=== PATIENT | male | born 1955 | race Two or more races ===

== ENCOUNTER 2023-02-16 22:03 | Emergency (ER) | payer OTHER ==
[~2023-02-16] VITALS: Ht 188 cm; Wt 106.5 kg
[2023-02-16 22:27] LABS: Basophils # (auto) 0 10 ^3/uL (0-0.2); Basophils % (auto) 0.5 % (0.0-2.0); Eosinophils # (auto) 0.3 10 ^3/uL (0-0.8); Hematocrit 42.2 % (41.0-53.0); Hemoglobin 14.8 g/dL (13.5-17.5); Lymphocytes # (auto) 2.8 10 ^3/uL (0.4-5.4); Lymphocytes % (auto) 30.4 % (10.0-50.0); Mean Corpuscular Hemoglobin 30.6 pg (28.0-32.0); Mean Corpuscular Hgb Conc. 35.1 g/dL (32.0-36.0); Monocytes # (auto) 0.9 10 ^3/uL (0-1.3); Monocytes % (auto) 9.7 % (0.0-12.0); Neutrophils # (auto) 5.3 10 ^3/uL (1.6-8.6); Neutrophils % (auto) 56.4 % (37.0-80.0); Nucleated Red Blood Cells % 0.2 %; Red Blood Cells 4.85 10^6/uL (4.5-5.90); Red Cell Distribution Width 13.3 % (11.8-14.3); White Blood Cell 9.4 10^3/uL (4.4-10.8)
[2023-02-16 22:40] LABS: Albumin 3.8 g/dL (3.4-5.0); Calcium 8.8 mg/dL (8.5-10.1)
[2023-02-16 22:44] LABS: Bilirubin, Total 0.3 mg/dL (0.2-1.0); Total Protein 7.6 g/dL (6.4-8.2)
[2023-02-16 22:47] LABS: Urine Bacteria NONE SEEN /hpf (None Seen); Urine Blood Negative /uL (Negative); Urine Specific Gravity 1.024 (1.001-1.035); Urine WBC <1 /hpf (0 - 3)
[2023-02-16 23:19] LABS: BUN/Creatinine Ratio 25.8 (10.0-20.0)
[2023-02-17] MEDS ORDERED: ASPirin 325 MG TAB PO ONE (02:45)
[2023-02-17 04:51] VITALS: BP 135/82
[2023-02-17] MEDS ORDERED: LISI20TA28 PO ×2 (05:25)
[2023-02-17] MEDS ORDERED: LISINOPRIL 10 MG TAB PO ONE (05:30)
[2023-02-17] MEDS ORDERED: LISI-716 PO (05:32)
[2023-02-18] MEDS ORDERED: METO25TA93 PO (23:34)
[2023-02-18] MEDS ORDERED: CLOP75TA28 PO (23:34)
== END 2023-02-17 07:16 | disposition home or self-care (01) ==
LOC: ER 22:03
DX: R07.89 Other chest pain (principal); R77.8 Other specified abnormalities of plasma proteins; E86.0 Dehydration; E87.8 Other disorders of electrolyte and fluid balance, not elsewhere classified; R79.89 Other specified abnormal findings of blood chemistry; E78.5 Hyperlipidemia, unspecified; I10 Essential (primary) hypertension
CPT/HCPCS: 36415; 71045; 80053; 81001; 84484; 85025; 93005

== ENCOUNTER 2023-02-17 09:40 | Inpatient (IN) | payer OTHER ==
[~2023-02-17] VITALS: Ht 188 cm; Wt 104.2 kg
[~2023-02-17 09:40] MED LIST: LISI-716 PO; LISI20TA28 PO
[2023-02-17 10:24] LABS: Basophils # (auto) 0 10 ^3/uL (0-0.2); Basophils % (auto) 0.4 % (0.0-2.0); Eosinophils # (auto) 0.2 10 ^3/uL (0-0.8); Eosinophils % (auto) 2.4 % (0.0-7.0); Hematocrit 43.2 % (41.0-53.0); Lymphocytes # (auto) 2.5 10 ^3/uL (0.4-5.4); Lymphocytes % (auto) 25.3 % (10.0-50.0); Mean Corpuscular Hemoglobin 30.3 pg (28.0-32.0); Mean Corpuscular Hgb Conc. 34.7 g/dL (32.0-36.0); Mean Corpuscular Volume 87.1 fL (80.0-100.0); Monocytes # (auto) 0.7 10 ^3/uL (0-1.3); Monocytes % (auto) 7.5 % (0.0-12.0); Neutrophils # (auto) 6.2 10 ^3/uL (1.6-8.6); Neutrophils % (auto) 64.4 % (37.0-80.0); Nucleated Red Blood Cells % 0.2 %; Red Blood Cells 4.96 10^6/uL (4.5-5.90); Red Cell Distribution Width 13.3 % (11.8-14.3); White Blood Cell 9.7 10^3/uL (4.4-10.8)
[2023-02-17] MEDS ORDERED: SOD CHL 0.45% 1,000 ML IV ONE (10:45)
[2023-02-17] MEDS ORDERED: MORPHINE SULFATE INJ 2 MG/ml SYRG IV PRN (10:45)
[2023-02-17] MEDS ORDERED: NITROGLYCERIN 0.4 MG SL TAB SL PRN (10:45)
[2023-02-17 10:46] LABS: Potassium 4.8 mmol/L (3.5-5.1)
[2023-02-17 10:53] LABS: Albumin 4.1 g/dL (3.4-5.0); BUN/Creatinine Ratio 25.6 (10.0-20.0); Bilirubin, Total 0.5 mg/dL (0.2-1.0); Calcium 9.2 mg/dL (8.5-10.1); Total Protein 7.4 g/dL (6.4-8.2)
[2023-02-17] MEDS ORDERED: NITROGLYCERIN 0.4 MG SL TAB SL ONE (11:00)
[2023-02-17 11:23] LABS: INR 1.01 (0.9-1.15)
[2023-02-17] MEDS ORDERED: ONDANSETRON HCL 4 MG/2 ML VIAL ONE (16:12)
[2023-02-17] MEDS ORDERED: ONDANSETRON HCL 4 MG/2 ML VIAL IV ONE (16:15)
[2023-02-18 06:03] LABS: Albumin 3.4 g/dL (3.4-5.0); Calcium 8.9 mg/dL (8.5-10.1); Potassium 4.2 mmol/L (3.5-5.1)
[2023-02-18 06:06] LABS: Bilirubin, Total 0.5 mg/dL (0.2-1.0)
[2023-02-18 06:21] LABS: Basophils # (auto) 0 10 ^3/uL (0-0.2); Basophils % (auto) 0.5 % (0.0-2.0); Eosinophils # (auto) 0.2 10 ^3/uL (0-0.8); Eosinophils % (auto) 2.1 % (0.0-7.0); Hematocrit 40.7 % (41.0-53.0); Hemoglobin 14.3 g/dL (13.5-17.5); Lymphocytes # (auto) 1.7 10 ^3/uL (0.4-5.4); Lymphocytes % (auto) 20.3 % (10.0-50.0); Mean Corpuscular Hgb Conc. 35.1 g/dL (32.0-36.0); Mean Corpuscular Volume 88.3 fL (80.0-100.0); Monocytes # (auto) 0.7 10 ^3/uL (0-1.3); Monocytes % (auto) 8.7 % (0.0-12.0); Neutrophils # (auto) 5.9 10 ^3/uL (1.6-8.6); Neutrophils % (auto) 68.4 % (37.0-80.0); Nucleated Red Blood Cells % 0.1 %; Red Blood Cells 4.61 10^6/uL (4.5-5.90); Red Cell Distribution Width 13.5 % (11.8-14.3); White Blood Cell 8.6 10^3/uL (4.4-10.8)
[2023-02-18] MEDS ORDERED: ENOXAPARIN SOD 40 MG/0.4 ML SYRINGE SC SCH (10:00)
[2023-02-18] MEDS ORDERED: METOPROLOL SUCCINATE XL 50 MG TAB PO SCH (10:00)
[2023-02-18] MEDS: CLOPIDOGREL BISULFATE 75 MG TAB PO SCH (10:14)
[2023-02-18] MEDS: LISINOPRIL 10 MG TAB PO SCH (10:14)
[2023-02-18 11:00] LABS: Urine Bacteria NONE SEEN /hpf (None Seen); Urine Blood Negative /uL (Negative); Urine Mucus FEW (None Seen); Urine Specific Gravity 1.027 (1.001-1.035); Urine WBC <1 /hpf (0 - 3)
[2023-02-18] MEDS ORDERED: ENOXAPARIN SOD 100 MG/1 ML SYRINGE SC ONE (18:00)
[2023-02-18] MEDS: ATORVASTATIN 20 MG TAB PO SCH (22:00)
[2023-02-18 23:00] VITALS: BP 126/59
[2023-02-18] MEDS ORDERED: CLOP75TA28 PO (23:34)
[2023-02-18] MEDS ORDERED: METO25TA93 PO (23:34)
[2023-02-19] VITALS (12 sets, daily range): BP systolic 107–144; BP diastolic 60–83
[2023-02-19 06:35] LABS: Basophils # (auto) 0 10 ^3/uL (0-0.2); Basophils % (auto) 0.2 % (0.0-2.0); Eosinophils # (auto) 0.2 10 ^3/uL (0-0.8); Eosinophils % (auto) 1.8 % (0.0-7.0); Hematocrit 39.2 % (41.0-53.0); Hemoglobin 13.7 g/dL (13.5-17.5); Lymphocytes # (auto) 2.1 10 ^3/uL (0.4-5.4); Lymphocytes % (auto) 25.2 % (10.0-50.0); Mean Corpuscular Hemoglobin 30.6 pg (28.0-32.0); Mean Corpuscular Hgb Conc. 34.9 g/dL (32.0-36.0); Mean Corpuscular Volume 87.6 fL (80.0-100.0); Monocytes # (auto) 0.8 10 ^3/uL (0-1.3); Monocytes % (auto) 9.9 % (0.0-12.0); Neutrophils # (auto) 5.3 10 ^3/uL (1.6-8.6); Neutrophils % (auto) 62.9 % (37.0-80.0); Red Blood Cells 4.48 10^6/uL (4.5-5.90); Red Cell Distribution Width 13.7 % (11.8-14.3); White Blood Cell 8.4 10^3/uL (4.4-10.8)
[2023-02-19 06:38] LABS: INR 1.05 (0.9-1.15); Partial Thromboplastin Time 31.3 sec (24.6-33.4)
[2023-02-19 06:44] LABS: Potassium 4.2 mmol/L (3.5-5.1)
[2023-02-19 06:55] LABS: BUN/Creatinine Ratio 36.1 (10.0-20.0); Calcium 8.5 mg/dL (8.5-10.1)
[2023-02-19] MEDS: CLOPIDOGREL BISULFATE 75 MG TAB PO SCH (10:28)
[2023-02-19] MEDS: LISINOPRIL 10 MG TAB PO SCH (10:30)
[2023-02-19] MEDS ORDERED: ANGIOMAX 250 MG VIAL IV ONE (11:49)
[2023-02-19] MEDS ORDERED: VERAPAMIL 2.5MG/ML INJ 2ML VIAL IV ONE (11:49)
[2023-02-19] MEDS ORDERED: MIDAZOLAM HCL 2MG/2ML 2ml VIAL (1mg/ml) ONE (11:50)
[2023-02-19] MEDS ORDERED: fentaNYL CITRATE 100 MCG/2 ML VL ONE (11:50)
[2023-02-19] MEDS ORDERED: HEPARIN SODIUM (PORCINE) 5000 UNITS/ML 1ML VIAL ONE (11:50)
[2023-02-19] MEDS ORDERED: SODIUM CHL 0.9% 0 ML ONE (11:50)
[2023-02-19] MEDS: ATORVASTATIN 20 MG TAB PO SCH (21:04)
[2023-02-20 04:53] VITALS: BP 115/64
[2023-02-20 08:30] VITALS: BP 132/72
[2023-02-20] MEDS: LISINOPRIL 10 MG TAB PO SCH (09:34)
[2023-02-20 13:00] VITALS: BP 126/60
[2023-02-20 16:32] VITALS: BP 117/63
[2023-02-20] MEDS: ATORVASTATIN 20 MG TAB PO SCH (19:51)
[2023-02-20 20:00] VITALS: BP 132/75
[2023-02-20 22:00] VITALS: BP 132/75
[2023-02-21 05:00] VITALS: BP 123/67
[2023-02-21 08:37] VITALS: BP 124/67
[2023-02-21] MEDS: LISINOPRIL 10 MG TAB PO SCH (09:32)
[2023-02-21 13:00] VITALS: BP 112/67
[2023-02-21 16:17] VITALS: BP 125/63
[2023-02-21 20:00] VITALS: BP 107/71
[2023-02-21] MEDS: ATORVASTATIN 20 MG TAB PO SCH (21:43)
[2023-02-21 22:00] VITALS: BP 107/71
[2023-02-22] VITALS (7 sets, daily range): BP systolic 105–117; BP diastolic 60–71
[2023-02-22] MEDS: LISINOPRIL 10 MG TAB PO SCH (09:41)
[2023-02-22] MEDS: ATORVASTATIN 20 MG TAB PO SCH (22:00)
== END 2023-02-23 01:14 | disposition short-term general hospital (02) | DRG 286 ==
LOC: ER 09:40 → TELE 10:39 → TELE-WESTW 02-18 21:15 → OBSVTOIN 02-19 11:00
PROVIDERS: ADMIT Internal Medicine; ATTEND Internal Medicine
PROC: B211YZZ Fluoroscopy of Multiple Coronary Arteries using Other Contrast (ICD-10-PCS; principal; 2023-02-19)
DX: I25.110 Atherosclerotic heart disease of native coronary artery with unstable angina pectoris (principal); J96.90 Respiratory failure, unspecified, unspecified whether with hypoxia or hypercapnia; E78.5 Hyperlipidemia, unspecified; I10 Essential (primary) hypertension; Z20.822 Contact with and (suspected) exposure to COVID-19; R00.1 Bradycardia, unspecified; I25.2 Old myocardial infarction; Z95.5 Presence of coronary angioplasty implant and graft
CPT/HCPCS: 36415; 71045; 71275; 80048; 80053; 80061; 81001; 84484; 85025; 85610; 85730; 86850; 86900; 86901; 87426; 93005; 93306; 93458; 99152; G0378; J2250; J2405